=== PATIENT | male | born 1995 | race Caucasian/White ===

== ENCOUNTER 2017-01-13 16:22 | Emergency (ER) | payer OTHER ==
[~2017-01-13] VITALS: Ht 175.3 cm; Wt 67.0 kg
[~2017-01-13 16:22] MED LIST: LOPE2CAP PO
[2017-01-13 16:28] VITALS: Ht 175.3 cm; Wt 67.0 kg
[2017-01-13] MEDS ORDERED: DIPHTH/TET/ACEL PERTUSS (ADULT) 0.5 ML VIAL IM* ONE (18:00)
[2017-01-13] MEDS ORDERED: LIDOCAINE 1% (MDV) 20 ML INJ SC ONE (18:00)
--- NOTE | 2017-01-13 18:00 | ERD ---
ER Documentation Chief Complaint Date/Time DATE: 01/13/17 TIME: 17:58 Chief Complaint left leg lac HPI Patient is a 21-year-old male who presents to the ED with a laceration to his left leg that occurred today. He states that he was trying to climb on to the roof and was standing on a foldable table when he slipped and his leg went into the glass window. He does not have pain above or below his tibia. He is unsure of his last tetanus shot. States that it was bleeding at the time. He is able to walk but with mild pain. Denies hitting his head or losing consciousness. Denies passing out. ROS All systems reviewed and are negative except as per history of present illness. Medications Home Meds Active Scripts Bacitracin* (Bacitracin Oint (UD)*) 1 Applic Oint, 1 APPLIC TOP ONCE for 7 Days , PKT APPLY TO Prov:RYAN ACEVEDO PA-C 01/13/17 Cephalexin* (Keflex*) 500 Mg Capsule, 500 MG PO QID for 5 Days, CAP Prov:RYAN ACEVEDO PA-C 01/13/17 Loperamide Hcl* (Imodium*) 2 Mg Capsule, 2 MG PO .AFTER EA LOOSE BM Y for DIARRHEA, #10 TAB Prov:JOSE RAUL PERALES DO 02/07/16 Allergies Allergies: Coded Allergies: No Known Allergy (Unverified , 01/13/17) PMhx/Soc Medical and Surgical Hx: pt denies Medical Hx, pt denies Surgical Hx History of Surgery: No Anesthesia Reaction: No Hx Neurological Disorder: No Hx Respiratory Disorders: No Hx Cardiac Disorders: No Hx Psychiatric Problems: No Hx Miscellaneous Medical Probl: No Hx Alcohol Use: No Hx Substance Use: No Hx Tobacco Use: No Smoking Status: Never smoker FmHx Family History: No coronary disease, No diabetes, No other Physical Exam Vitals Vital Signs Date Time Temp Pulse Resp B/P Pulse Ox O2 Delivery O2 Flow Rate FiO2 01/13/17 16:28 98.1 76 18 128/72 99 Physical Exam GENERAL: Well-developed, well-nourished male. Appears in no acute distress. LUNG: Clear to auscultation bilaterally. No rhonchi, wheezing, rales or coarse breath sounds. HEART: Regular rate and rhythm. No murmurs, rubs or gallops. Extremities: Equal pulses bilaterally. No peripheral clubbing, cyanosis or edema. No unilateral leg swelling. 9 cm laceration to the right anterior leg. Subcutaneous and bone visible with no signs of open fracture. multiple other abrasions and superficial cuts on right leg. NEUROLOGIC: Alert and oriented. Moving all four extremities. 5/5 strength in all extremities. Normal speech. Steady gait. negative rosie sign. SKIN: Normal color. Warm and dry. No rashes or lesions. Capillary refill < 2 seconds Results 24 hrs Current Medications Medications (Trade) Dose Ordered Sig/Jerome Route PRN Reason Start Time Stop Time Status Last Admin Dose Admin Lidocaine (Xylocaine 1% (Mdv) 20 ml) 20 ml ONCE ONCE SC 01/13/17 18:00 01/13/17 18:01 DC Diphtheria/ Tetanus/Acell Pertussis (Adacel) 0.5 ml ONCE ONCE IM* 01/13/17 18:00 01/13/17 18:01 DC 01/13/17 18:11 Procedures/MDM ER COURSE: I kept the patient and/or family informed of laboratory and diagnostic imaging results throughout the emergency room course. PROCEDURES Laceration Repair by me: Anesthesia: 1% lidocaine locally Location: right leg Tendon/Joint/Nerves: No injury Foreign body: None detected after copious irrigation and exploration Technique: 7, 3-0 Simple Interrupted Sutures Complexity: No subcutaneous sutures/mucosal repair/ edge excision Post Closure Length: [9] cm Patient's bleeding was easily controlled in the department and there is no indication of anemia. No evidence of compartment syndrome, neurologic injury, vascular injury, open joint, tendon laceration, or foreign body. Patient is appropriate for outpatient follow up. 48 hour wound check. Scar minimization instructions given. MEDICAL DECISION MAKING: This is a 21-year-old male who presents with laceration to right leg. Vital signs were reviewed. Patient is afebrile. Patient is not hypoxic. Patient is nontoxic or ill-appearing. X-rays read by radiologist is unremarkable and no foreign bodies. Patient has a laceration to his right leg. Low suspicion for dislocation, fracture, septic joint, compartment syndrome, osteomyelitis, cellulitis, avascular necrosis, neurological injury, vascular injury, tendon laceration. Low suspicion for necrotizing fasciitis, SJS, toxic epidermal necrolysis, Kawasaki, erythema multiforme, gangrene, scarlet fever, meningococcemia, sepsis, anaphylaxis, sepsis, deep space infection, or foreign body. DISCHARGE: At this time, patient is stable for discharge and outpatient management with no new complaints during the ER course. Patient was sent home with Keflex and bacitracin and to follow-up in 2 days for wound check and to return in 8 days for suture removal.. Patient will be discharged home with instructions to recheck for new or worsening symptoms such as fever, nausea, weakness, LOC and to follow up with primary care in the next 1-2 days. Patient was advised to return to the ER for any new or worsening symptoms. Plan was discussed and patient and/or family understands and agrees. Home instructions were given. Departure Diagnosis: Primary Impression: Laceration Condition: Stable RYAN ACEVEDO PA-C Jan 13, 2017 18:00
--- NOTE | 2017-01-13 19:09 | RADRPT ---
PROCEDURE: XR Tibia and Fibula. CLINICAL INDICATION: Laceration TECHNIQUE: 4 views of the left tibia and fibula are available for review. COMPARISON: None available FINDINGS: The left tibia and fibula are intact. No acute fracture or dislocation is seen. No radiopaque fore ign body is identified. There is no radiopaque foreign body. A small soft tissue calcification seen in the distal pretibial soft tissue. IMPRESSION: 1. No acute osseous abnormality or radiopaque foreign body. RPTAT: PP .Erich Landry MD, MD Date Time Electronically viewed and signed by .Erich Landry MD, on 01/13/2017 19:08 .d/
[2017-01-13] MEDS ORDERED: CEPH-443 PO (19:34)
[2017-01-13] MEDS ORDERED: BACITUD TOP (19:34)
== END 2017-01-13 19:55 | disposition home or self-care (01) ==
LOC: FTE 16:22
DX: S81.811A Laceration without foreign body, right lower leg, initial encounter (principal); W25.XXXA Contact with sharp glass, initial encounter; Y92.9 Unspecified place or not applicable; Z23 Encounter for immunization
CPT/HCPCS: 12004; 73590; Z7610; 90471

== ENCOUNTER 2017-01-15 12:48 | Emergency (ER) | payer OTHER ==
[~2017-01-15] VITALS: Ht 180.3 cm; Wt 76.5 kg
[~2017-01-15 12:48] MED LIST changes: +BACITUD TOP; +CEPH-443 PO
[2017-01-15 13:06] VITALS: Ht 180.3 cm; Wt 76.5 kg
--- NOTE | 2017-01-15 14:21 | ERD ---
ER Documentation Chief Complaint Date/Time DATE: 01/15/17 TIME: 14:18 Chief Complaint WOUND RECHECK , DENIES PAIN, NO REDNESS OR SWELLING HPI 21-year-old male patient with no significant past medical history presents to the ED for a laceration wound check that occurred on his left leg 2 days ago. States that he was trying to climb on top of the roof and was standing on a multiple table and slipped and went through a glass window. Denies any joint pain, headache, weakness, fever, chills, loss of sensation, loss of range of motion, redness, swelling. Patient states that he is up-to-date with his tetanus vaccine. Patient has been applying bacitracin and also been taking Keflex consistently. ROS All systems reviewed and are negative except as per history of present illness. Medications Home Meds Active Scripts Bacitracin* (Bacitracin Oint (UD)*) 1 Applic Oint, 1 APPLIC TOP ONCE for 7 Days , PKT APPLY TO Prov:RYAN ACEVEDO PA-C 01/13/17 Cephalexin* (Keflex*) 500 Mg Capsule, 500 MG PO QID for 5 Days, CAP Prov:RYAN ACEVEDO PA-C 01/13/17 Loperamide Hcl* (Imodium*) 2 Mg Capsule, 2 MG PO .AFTER EA LOOSE BM Y for DIARRHEA, #10 TAB Prov:JOSE RAUL PERALES DO 02/07/16 Allergies Allergies: Coded Allergies: No Known Allergy (Unverified , 01/13/17) PMhx/Soc History of Surgery: No Anesthesia Reaction: No Hx Neurological Disorder: No Hx Respiratory Disorders: No Hx Cardiac Disorders: No Hx Psychiatric Problems: No Hx Miscellaneous Medical Probl: No Hx Alcohol Use: No Hx Substance Use: No Hx Tobacco Use: No Physical Exam Vitals Vital Signs Date Time Temp Pulse Resp B/P Pulse Ox O2 Delivery O2 Flow Rate FiO2 01/15/17 13:06 98.6 62 19 144/64 99 Physical Exam Const: [id number], well-nourished. In no acute distress. Head: Atraumatic, normocephalic Eyes: Normal Conjunctiva without injection ENT: Normal external ear, nose and mouth. Neck: Full range of motion. No meningismus. Resp: Clear to auscultation bilaterally. No wheezing, rhonchi, rales, or crackles. No accessory muscle use. No retractions. Cardio: Regular rate and rhythm, no murmurs Skin: No petechiae or rashes Back: No midline tenderness. No CVA tenderness. Ext: No cyanosis, or edema. Cap refill less than 2 seconds. Distal pulses intact bilaterally. 9 cm laceration on patient's left callejas with 7 sutures noted with no signs of dehiscence. No erythema, edema, purulent discharge, deformities. Neur: Awake and alert. Normal gait and coordination. Muscle strength 5/5. Sensation intact bilaterally. Psych: Normal Mood and Affect Procedures/MDM This is a 21-year-old male patient with no significant past medical history presents to the ED for a wound check. Patient is afebrile and nontoxic- appearing. Patient has normal vital signs. There was 7 sutures noted keeping the 9 cm laceration intact of anterior callejas. Patient is neurovascularly intact. No signs of dehiscence, deep space infection, sepsis, cellulitis, fractures, dislocations, tendon injury, DVT, compartment syndrome, or other emergent conditions. Discharge medications: Continue taking and complete course of Keflex as prescribed and ibuprofen as needed for pain. Follow up with primary care physician or here in the ED in 7-8 days for a suture removal. Instructed patient to return to the ED sooner for any worsening symptoms. Patient's questions were answered. Patient understood and agreed with discharge plan. Patient discharged stable. Departure Diagnosis: Primary Impression: Encounter for re-check of laceration wound Condition: Stable Patient Instructions: Wound Care, Wound Check, Lac F/U (No Infection) Referrals: [facility] YOU HAVE RECEIVED A MEDICAL SCREENING EXAM AND THE RESULTS INDICATE THAT YOU DO NOT HAVE A CONDITION THAT REQUIRES URGENT TREATMENT IN THE EMERGENCY DEPARTMENT. FURTHER EVALUATION AND TREATMENT OF YOUR CONDITION CAN WAIT UNTIL YOU ARE SEEN IN YOUR DOCTORS OFFICE WITHIN THE NEXT 1-2 DAYS. IT IS YOUR RESPONSIBILITY TO MAKE AN APPOINTMENT FOR FOLOW-UP CARE. IF YOU HAVE A PRIMARY DOCTOR --you should call your primary doctor and schedule an appointment IF YOU DO NOT HAVE A PRIMARY DOCTOR YOU CAN CALL OUR PHYSICIAN REFERRAL HOTLINE AT IF YOU CAN NOT AFFORD TO SEE A PHYSICIAN YOU CAN CHOSE FROM THE FOLLOWING [facility] [address] [facility]. [facility]) [phone] [facility]. [facility] [address] [facility] [address] [facility] [address] [facility]. [facility] [address] [facility]. [facility] YOU HAVE RECEIVED A MEDICAL SCREENING EXAM AND THE RESULTS INDICATE THAT YOU DO NOT HAVE A CONDITION THAT REQUIRES URGENT TREATMENT IN THE EMERGENCY DEPARTMENT. FURTHER EVALUATION AND TREATMENT OF YOUR CONDITION CAN WAIT UNTIL YOU ARE SEEN IN YOUR DOCTORS OFFICE WITHIN THE NEXT 1-2 DAYS. IT IS YOUR RESPONSIBILITY TO MAKE AN APPOINTMENT FOR FOLOW-UP CARE. IF YOU HAVE A PRIMARY DOCTOR --you should call your primary doctor and schedule and appointment IF YOU DO NOT HAVE A PRIMARY DOCTOR YOU CAN CALL OUR PHYSICIAN REFERRAL HOTLINE AT . IF YOU CAN NOT AFFORD TO SEE A PHYSICIAN YOU CAN CHOSE FROM THE FOLLOWING [facility] INSTITUTIONS: [facility] [address] [place] [address] [facility] [address] [place] [address] [facility] + [facility] [address] [place] [address] [facility]RGENT C[facility]/SPECIALTIES Additional Instructions: Follow up with your physician to remove the stitches:For Face wounds 5-7 days.For Elsewhere on the body 7-10 days. Return to this facility if you are not improving as expected. TREV COPELAND PA-C Jan 15, 2017 14:21
== END 2017-01-16 07:14 | disposition home or self-care (01) ==
LOC: E/R 12:48
DX: Z48.01 Encounter for change or removal of surgical wound dressing (principal)
CPT/HCPCS: 99281

== ENCOUNTER 2017-01-24 19:05 | Emergency (ER) | payer OTHER ==
[~2017-01-24] VITALS: Ht 182.9 cm; Wt 77.0 kg
[2017-01-24 20:06] VITALS: Ht 182.9 cm; Wt 77.0 kg
--- NOTE | 2017-01-24 20:19 | ERD ---
ER Documentation Chief Complaint Date/Time DATE: 01/24/17 TIME: 20:17 Chief Complaint pt here for stitch removal from LLE HPI 21-year-old male presented ED today for removal of the suture on his anterior left lower leg. He has sustained a laceration of 01/13/2017, and received suturing here. Patient reports no increased pain, swelling, or wound drainage. Denies fever or chills. ROS All systems reviewed and are negative except as per history of present illness. Medications Home Meds Active Scripts Bacitracin* (Bacitracin Oint (UD)*) 1 Applic Oint, 1 APPLIC TOP ONCE for 7 Days , PKT APPLY TO Prov:RYAN ACEVEDO-C 01/13/17 Cephalexin* (Keflex*) 500 Mg Capsule, 500 MG PO QID for 5 Days, CAP Prov:RYAN ACEVEDO-C 01/13/17 Loperamide Hcl* (Imodium*) 2 Mg Capsule, 2 MG PO .AFTER EA LOOSE BM Y for DIARRHEA, #10 TAB Prov:JOSE RAUL PERALES DO 02/07/16 Allergies Allergies: Coded Allergies: No Known Allergy (Unverified , 01/13/17) PMhx/Soc Medical and Surgical Hx: pt denies Medical Hx History of Surgery: No Anesthesia Reaction: No Hx Neurological Disorder: No Hx Respiratory Disorders: No Hx Cardiac Disorders: No Hx Psychiatric Problems: No Hx Miscellaneous Medical Probl: No Hx Alcohol Use: No Hx Substance Use: No Hx Tobacco Use: No Physical Exam Vitals Vital Signs Date Time Temp Pulse Resp B/P Pulse Ox O2 Delivery O2 Flow Rate FiO2 01/24/17 20:06 98.3 74 16 143/78 98 Physical Exam General impression: Well-developed, well-nourished. Alert, oriented, in no acute distress Head: Normocephalic, atraumatic. Eyes: PERRL, EOM normal. Sclerae are normal. Conjunctiva not injected. Respiration: Normal respiratory effort. Lungs clear to auscultate bilaterally. No wheezes, rales or rhonchi. Cardiovascular: Regular rate and rhythm. No murmurs or extra heart sounds. Extremities: Extremities normal to inspection, nontender. ROM normal. Wound closed with suturing of the anterior left callejas, no periwound erythema, swelling , or exudate. Neurovascularly intact. Neuro: Mental status normal, speech normal. [employer]GER grossly intact. Skin: Normal turgor. No rash or lesions. Psych: Normal mood and affect. Procedures/MDM Suture Removal by me: Sutures removed with tweezers and scissors without incident. Wound shows no evidence of infection, foreign body, neurologic injury, vascular injury, open joint or tendon laceration. Patient to follow up PRN. Departure Diagnosis: Primary Impression: Encounter for removal of sutures Condition: Good Patient Instructions: Suture Removal, No Complication Referrals: DOCTOR,NOT ON STAFF (PCP) [facility] YOU HAVE RECEIVED A MEDICAL SCREENING EXAM AND THE RESULTS INDICATE THAT YOU DO NOT HAVE A CONDITION THAT REQUIRES URGENT TREATMENT IN THE EMERGENCY DEPARTMENT. FURTHER EVALUATION AND TREATMENT OF YOUR CONDITION CAN WAIT UNTIL YOU ARE SEEN IN YOUR DOCTORS OFFICE WITHIN THE NEXT 1-2 DAYS. IT IS YOUR RESPONSIBILITY TO MAKE AN APPOINTMENT FOR FOLOW-UP CARE. IF YOU HAVE A PRIMARY DOCTOR --you should call your primary doctor and schedule an appointment IF YOU DO NOT HAVE A PRIMARY DOCTOR YOU CAN CALL OUR PHYSICIAN REFERRAL HOTLINE AT IF YOU CAN NOT AFFORD TO SEE A PHYSICIAN YOU CAN CHOSE FROM THE FOLLOWING [facility] [address] [facility]. [facility] [address] [facility] [facility] [address] [facility] [facility] [address] [facility]. [facility] [address] [facility]. [facility] [address] Additional Instructions: FOLLOW UP WITH YOUR PRIMARY CARE PHYSICIAN as needed. Return to this facility if you are not improving as expected. SASCHA KEITA NP Jan 24, 2017 20:19
== END 2017-01-24 20:16 | disposition home or self-care (01) ==
LOC: E/R 19:05
DX: Z48.02 Encounter for removal of sutures (principal)
CPT/HCPCS: 99281